=== PATIENT | male | born 1995 | race Caucasian/White ===

== ENCOUNTER 2020-07-15 21:33 | Emergency (ER) | payer BC, SELFPAY ==
[2020-07-15 21:34] VITALS: BP 132/79; PULSE 65; RESP 18; TEMP 36.1; O2SAT 99; BMI 33.7
--- NOTE | 2020-07-15 22:02 | EKG12_ITS ---
Test Reason : CP Blood Pressure : / mmHG Vent. Rate : 074 BPM Atrial Rate : 074 BPM P-R Int : 144 ms QRS Dur : 076 ms QT Int : 350 ms P-R-T Axes : 018 021 046 degrees QTc Int : 388 ms Normal sinus rhythm Normal ECG Confirmed by BO GRUBER, DANNI ([id number]), publishing editor TEJAL VILLALTA ([id number]) on 07/18/2020 1:28:50 PM Referred By: JOLANTA Confirmed By:STERLING SORIANO MD
--- NOTE | 2020-07-15 22:05 | ED.RN ---
DOES NOT HAVE A OLD EKG
[2020-07-15 22:14] LABS: Absolute Lymphocyte Count 2.55 X10^3/uL (0.83-4.51); Absolute Neutrophil Count 4.7 X10^3/uL (2.0-7.7); Basophil# 0.03 X10^3/uL; Basophil% 0.4 % (0-1); Eosinophil# 0.09 X10^3/uL; Eosinophils% 1.1 % (0-5); Hematocrit 41.6 % (40-54); Hemoglobin 13.7 g/dL (13.0-16.5); Lymphocyte # 2.55 X10^3/ul (4.0); Mean Corp Hgb Conc 32.9 g/dL (32-36); Mean Corpuscular Hgb 27.9 pg (27.0-32.0); Mean Corpuscular Volume 84.7 fL (80-94); Monocyte# 0.53 X10^3/uL; Monocyte% 6.6 % (0-10); NRBC Flagged by Analyzer 0 % (0-5); Neutrophil # 4.73 X10^3/uL (2.7-7.7); Neutrophil % 59.4 % (47-70); Platelet Count 215 K/mm3 (150-450); RBC Distribution Width CV 11.9 % (11.6-14.6); RBC Distribution Width SD 36.5 fl (35.1-43.9); Red Blood Count 4.91 M/mm3 (4.6-6.2)
[2020-07-15] MEDS: 0.9% Normal Saline 1,000 ML 150 ML IV (22:16)
--- NOTE | 2020-07-15 22:30 | RAD_ITS ---
STUDY: X-RAY CHEST REASON FOR EXAM: Male, 25 years old. PAIN IN LEFT LOWER CHEST, SHARP PAIN THAT LEADS TO SOB. TECHNIQUE: AP portable COMPARISON: None. FINDINGS: Less than optimal inspiratory effort is seen however the lungs are clear. There is no demonstrated pleural abnormality. Normal size heart. Normal mediastinum and srinivas. Normal visualized pulmonary arteries. Normal visualized aortic arch and descending thoracic aorta. Normal visualized thoracic spine. Normal visualized ribs, clavicles, and shoulders. There is no demonstrated abnormality of the visualized soft tissue structures of the upper abdomen. RAD/Chest 1 View (Portable) IMPRESSION: Diminished inspiratory effort. No acute disease. Electronically Signed: Alex Spring MD at 22:48 EDT , Service support ,
--- NOTE | 2020-07-15 22:34 | ED.VIS.GEN ---
History of Present Illness Chief Complaint: Flank Pain Detail of Chief Complaint: Chest pain, flank pain Informant: Patient Onset: Days Current Severity: Mild Maximum Severity: Moderate Narrative: Patient presents with intermittent sharp left-sided chest pain. He also reports some left flank pain. He states a couple days ago he had sharp chest pain but really had no further episodes until today. He denies night headedness or near syncope. He denies palpitations. He does report some tightness across his lower back lately with pain on his left leg. Past Medical History - Allergies and Home Meds Allergies/Adverse Reactions: Allergies No Known Allergies Allergy (Verified 07/15/20 21:34) Primary Care Physician: Toma Medel PA [Primary Care Provider] - Past Medical History: None Lives: Spouse/ Significant Other Smoking Status: Unknown if ever smoked Review of Systems General: Denies: Chills, Fever Eyes: Denies: Visual changes - bilaterally ENT: Denies: Bilateral ear pain Cardiovascular: Reports: Chest pain. Denies: Palpitations, Heart racing Respiratory: Denies: Dyspnea, Cough Gastrointestinal: Reports: Abdominal pain - Left flank. Denies: Nausea, Vomiting Musculoskeletal: Reports: Extremity Pain. Denies: Swelling Skin: Denies: Rash, Wounds Neurological: Denies: Headache Hematologic: Denies: Easy bruising, Easy bleeding Allergy: Denies: Uticaria Physical Exam Vital Signs/Narrative: Vital Signs Temp Pulse Resp BP Pulse Ox 07/15/20 21:34 97.0 F L 65 18 132/79 H 99 Inital Vital Signs reviewed: Yes General: Well nourished, Well developed Head: Normocephalic ENT: Moist mucous membranes Neck: Supple Cardiovascular: Regular rate, Regular rhythm Respiratory: No distress, CTA bilaterally Abdomen: Soft, Nontender, Normal bowel sounds Back: - - Is in the left lower lumbar paraspinal muscles. Extremities: Nontender Skin: Normal color Neurological: Alert, Oriented x3, Normal Strength, Normal Sensation Psychological: Normal affect Diagnostic/Tx/Re-eval Impressions Chest X-Ray 07/15/20 22:30 IMPRESSION: Diminished inspiratory effort. No acute disease. Electronically Signed: Alex Spring MD at 22:48 EDT , Service support , 07/15/20 22:30 Chest 1 View (Portable) [RAD] Stat Laboratory Results 07/15/20 07/15/20 07/15/20 22:00 22:00 22:00 WBC 8.0 RBC 4.91 Hgb 13.7 Hct 41.6 MCV 84.7 MCH 27.9 MCHC 32.9 RDW Std Deviation 36.5 RDW Coeff of Anastasiia 11.9 Plt Count 215 MPV 10.0 Immature Gran % (Auto) 0.500 Neut % (Auto) 59.4 Lymph % (Auto) 32.0 [place] % (Auto) 6.6 Eos % (Auto) 1.1 Baso % (Auto) 0.4 Absolute Neuts (auto) 4.7 Absolute Lymphs (auto) 2.55 Nucleated RBC % 0 D-Dimer Quant (PE/DVT) 0.30 Sodium 140 Potassium 3.8 Chloride 108 H Carbon Dioxide 29.0 Anion Gap 3 L BUN 14 Creatinine 1.00 Estim Creat Clear Calc 132.62 Est GFR (MDRD) Af Amer 115 Est GFR (MDRD) Non-Af 95 BUN/Creatinine Ratio 14.0 Glucose 108 H Calcium 8.4 L Troponin I < 0.015 Urine Color Urine Clarity Urine pH Ur Specific [place] Urine Protein Urine Glucose (UA) Urine Ketones Urine Occult Blood Urine Nitrite Urine Bilirubin Urine Urobilinogen Ur Leukocyte Esterase Urine RBC Urine WBC Ur Squamous Epith Cells Amorphous Sediment Urine Bacteria Urine Mucus 07/15/20 23:11 WBC RBC Hgb Hct MCV MCH MCHC RDW Std Deviation RDW Coeff of Anastasiia Plt Count MPV Immature Gran % (Auto) Neut % (Auto) Lymph % (Auto) [place] % (Auto) Eos % (Auto) Baso % (Auto) Absolute Neuts (auto) Absolute Lymphs (auto) Nucleated RBC % D-Dimer Quant (PE/DVT) Sodium Potassium Chloride Carbon Dioxide Anion Gap BUN Creatinine Estim Creat Clear Calc Est GFR (MDRD) Af Amer Est GFR (MDRD) Non-Af BUN/Creatinine Ratio Glucose Calcium Troponin I Urine Color Yellow Urine Clarity Clear Urine pH 7.0 Ur Specific [place] 1.010 Urine Protein Negative Urine Glucose (UA) Normal Urine Ketones Negative Urine Occult Blood Negative Urine Nitrite Negative Urine Bilirubin Negative Urine Urobilinogen 1 H Ur Leukocyte Esterase Negative Urine RBC 0 SEEN Urine WBC 0 SEEN Ur Squamous Epith Cells 0 SEEN Amorphous Sediment 1+ Urine Bacteria 2+ Urine Mucus 0 SEEN - EKG Initial EKG Interpretation: Sinus Rhythm - Sinus at 74 with no acute ischemia. - Medical Decision Making Test results discussed with patient and significant other at bedside. He does have reproducible tenderness in the left lower lumbar paraspinals with pain down his leg. I feel this is likely nerve irritation. His chest pain is described as intermittent and sharp. He may have a degree of costochondritis causing this. Regardless I think that prednisone helped calm both of these down. He will be given first dose tonight and then discharged with a prescription for a burst. ED Disposition - Plan for ED Patient: Disposition: Home or Assisted Living Diagnosis: Lumbar radiculopathy Instructions: ED Back Pain Acute or Chronic Prescriptions: Prednisone [Deltasone] 40 mg PO DAILY #10 tab Transmission Status: Pending to [id number] Referrals: Toma Medel PA [Primary Care Provider] - 1 Week
[2020-07-15 22:36] LABS: Anion Gap 3 (5-15); BUN 14 mg/dL (7-18); Calcium,Total 8.4 mg/dL (8.5-10.1); Chloride 108 mmol/L (98-107); EST Glomerular Filtration Rate 95 mL/min (>60); Est Glom Filt Rate - Afr Amer 115 mL/min (>60); Estimated Creatinine Clearance 132.62 ml/min; Glucose 108 mg/dL (74-106); Potassium 3.8 mmol/L (3.5-5.1); Sodium Level 140 mmol/L (136-145)
[2020-07-15 23:19] LABS: Mucous, Urine 0 SEEN /hpf (<or=2+); Red Blood Cells-Urine 0 SEEN /hpf (0-5); Squamous Epithelial Cells - UA 0 SEEN /hpf (0-5); White Blood Cells 0 SEEN /hpf (0-5)
[2020-07-15 23:20] LABS: Color, Urine Yellow (Yellow); Glucose, Dipstick Normal (Normal); Ketone-Dipstick Negative (Negative); Leukocyte Esterase-Dipstick Negative /ul (Negative); Nitrite-Dipstick Negative (Negative); Occult Blood-Urine Negative /ul (Negative); Protein-Dipstick Negative (Negative); Urine Bilirubin Dipstick Negative (Negative); Urine Clarity Clear (Clear); Urine Urobilinogen 1 mg/dl (Normal)
[2020-07-15 23:37] LABS: Bacteria 2+ /hpf (None Seen)
[2020-07-15 23:38] LABS: Amorphous Sediment 1+
[2020-07-16] MEDS: predniSONE 20 MG Tablet 60 MG PO (00:01)
[2020-07-16 00:02] VITALS: BP 111/71; PULSE 65; RESP 18; O2SAT 98
== END 2020-07-16 00:05 | disposition home or self-care (01) ==
PROVIDERS: Emergency Provider Emergency Medicine; PCP Physician Assistant
DX: M54.16 Radiculopathy, lumbar region (principal); R10.9 Unspecified abdominal pain
CPT/HCPCS: 71045; 80048; 81001; 84484; 85025; 85379; 93005; 96360; 96361; 99285; A4216

== ENCOUNTER 2021-01-18 13:22 | Emergency (ER) | payer BC, SELFPAY ==
[2021-01-18 13:23] VITALS: BP 137/92; PULSE 85; RESP 16; TEMP 37; O2SAT 98; BMI 34.9
--- NOTE | 2021-01-18 13:37 | EKG12_ITS ---
Test Reason : FALL Blood Pressure : / mmHG Vent. Rate : 074 BPM Atrial Rate : 074 BPM P-R Int : 144 ms QRS Dur : 076 ms QT Int : 358 ms P-R-T Axes : 030 035 048 degrees QTc Int : 397 ms Normal sinus rhythm Normal ECG Confirmed by NAOMI GRUBER, RADHA ([id number]), video tape editor TEJAL VILLALTA ([id number]) on 01/21/2021 10:00:51 AM Referred By: RU Confirmed By:RADHA SALGADO MD
--- NOTE | 2021-01-18 13:37 | CT_ITS ---
EXAM: CT HEAD WITHOUT INTRAVENOUS CONTRAST CLINICAL INDICATION: Fall hitting left side of head 4 months ago, pain TECHNIQUE: Multiple axial images were obtained of the head without intravenous contrast. This CT exam was performed using one or more of the following dose reduction techniques: automated exposure control, adjustment of the mA and/or kV according to patient size, and/or use of iterative reconstruction technique. This report was created using [employer] report generation technology. COMPARISON: None. FINDINGS: BRAIN AND EXTRA-AXIAL SPACES: Unremarkable. No intra- or extra-axial hemorrhage. No evidence of acute infarct. No intracranial mass or mass effect. There is preservation of the joseph/white matter interface. Posterior fossa structures are unremarkable. Ventricles are appropriate for age. No hydrocephalus. Basal cisterns are patent. BONES/JOINTS: Unremarkable. No discrete lytic or blastic abnormalities. SINUSES: Unremarkable as visualized. Clear. MASTOID AIR CELLS: Unremarkable. Clear. ORBITS: Visualized globes, extraocular muscles, optic nerves and retrobulbar fat appear unremarkable. CT/Brain/Head without Contrast IMPRESSION: Negative head/brain CT without intravenous contrast. Electronically Signed: Armaan Escamilla MD ([place]) at 14:12 EDT , Service support ,
--- NOTE | 2021-01-18 13:38 | ED.VISSUMM ---
- ER Visit Summary Date of Service: 01/18/21 Chief Complaint: [Not feeling well with headache] History of Present Illness: The patient is a 25 M [presents to the emergency department with multiple complaints today. Patient states that 2 to 3 months ago he was cutting some wood when a piece flew back and struck him in the left side of the head. Patient states that he saw stars for a few moments but does not believe he was knocked unconscious. Patient since that time is been having intermittent headaches and has not been feeling well. Patient states that while standing and talking to a friend yesterday, lost his balance and started to fall backwards but caught himself. Today while at his mother's house he was sitting when he began suddenly feeling very shaky and his face became flushed. Patient does state that he has been under more stress of late. No history of anxiety or panic attacks. He denies recent illness. Patient otherwise has no medical history.] Physical Examination: [HEENT-PERRLA, EOMI. Cranial nerves II through XII grossly intact. TMs clear. Mucous membranes moist. No adenopathy. Cardiovascular-regular rate and rhythm without murmur or ectopy Lungs-clear to auscultation, chest wall stable without crepitus or subcu emphysema Abdomen-normoactive bowel sounds, soft, nontender, no rebound or rigidity, no peritoneal signs. Extremities-intact ?4, normal range of motion, normal pulses, atraumatic] Test Results: [Orthostatic vital signs were negative. CBC with it was normal. Chemistries normal. Troponin is less than 0.015. EKG obtained on arrival showed a sinus rhythm with a ventricular rate of 74 bpm with no acute ST segment changes. CT scan of the brain without contrast was normal.] Emergency Department Course and Treatment: [The line established on arrival.] Treatment Plan: [Patient to follow-up with his primary care physician 3 to 5 days. At this point etiology of symptoms unclear although I suspect anxiety may be a component.] Disposition: [Discharged home in stable condition] Impression: [Cephalgia-posttraumatic Anxiety reaction] This note was generated with [employer] dictation software. It may contain incorrect words, spelling, and punctuation that were not noted in review of the chart prior to signing ED Disposition - Plan for ED Patient: Referrals: Toma Medel PA [Primary Care Provider] -
[2021-01-18 13:53] LABS: Absolute Neutrophil Count 4.8 X10^3/uL (2.0-7.7); Basophil# 0.04 X10^3/uL; Basophil% 0.5 % (0-1); Eosinophil# 0.07 X10^3/uL; Eosinophils% 0.9 % (0-5); Hematocrit 45.5 % (40-54); Hemoglobin 15.2 g/dL (13.0-16.5); Lymphocyte % 27.1 % (19-41); Mean Corp Hgb Conc 33.4 g/dL (32-36); Mean Corpuscular Hgb 28.1 pg (27.0-32.0); Mean Corpuscular Volume 84.1 fL (80-94); Mean Platelet Vol. 9.8 fl (6.2-12.0); Monocyte# 0.45 X10^3/uL; Monocyte% 6.1 % (0-10); NRBC Flagged by Analyzer 0 % (0-5); Neutrophil # 4.78 X10^3/uL (2.7-7.7); Neutrophil % 64.7 % (47-70); Platelet Count 233 K/mm3 (150-450); RBC Distribution Width CV 11.9 % (11.6-14.6); RBC Distribution Width SD 35.9 fl (35.1-43.9); Red Blood Count 5.41 M/mm3 (4.6-6.2); White Blood Count 7.4 K/mm3 (4.4-11.0)
[2021-01-18 14:11] LABS: Anion Gap 6 (5-15); BUN 14 mg/dL (7-18); BUN/Creat Ratio 13.3 RATIO (10-20); Calcium,Total 8.6 mg/dL (8.5-10.1); Chloride 106 mmol/L (98-107); Creatinine, Serum 1.05 mg/dL (0.70-1.30); EST Glomerular Filtration Rate 90 mL/min (>60); Est Glom Filt Rate - Afr Amer 109 mL/min (>60); Glucose 112 mg/dL (74-106); Sodium Level 140 mmol/L (136-145)
[2021-01-18] MEDS: 0.9% Normal Saline 1,000 ML 150 ML IV (14:25)
[2021-01-18 14:35] VITALS: BP 117/73; BP 119/53; BP 125/74; PULSE 74; PULSE 77
--- NOTE | 2021-01-18 14:38 | ED.DEP ---
ED Disposition - Plan for ED Patient: Instructions: Tension Headaches, ED Panic Attack Referrals: Toma Medel, PA [Primary Care Provider] - 3-5 Days
== END 2021-01-18 15:07 | disposition home or self-care (01) ==
LOC: ED 14:18
PROVIDERS: Emergency Provider Emergency Medicine; PCP Physician Assistant
DX: G44.309 Post-traumatic headache, unspecified, not intractable (principal); F41.1 Generalized anxiety disorder; R23.2 Flushing; Z72.0 Tobacco use
CPT/HCPCS: 70450; 80048; 84484; 85025; 93005; 96360; 99284; J7030

== ENCOUNTER 2022-02-07 11:39 | Emergency (ER) | payer OTHER, SELFPAY ==
[2022-02-07 11:40] VITALS: BP 118/57; PULSE 87; RESP 16; TEMP 36.4; O2SAT 98; BMI 33.7
--- NOTE | 2022-02-07 11:58 | ED.VIS.BACK ---
HPI History of Present Illness Chief Complaint: Back Detail of Chief Complaint: Patient with complaint of mid back pain that started 5 days ago. Informant: patient Onset/Context/Timing Current Severity: Severe Narrative Narrative: Patient presents to the emergency department complaint of back pain is her about 5 days ago. No trauma known. Patient does work for tree service and trims trees. Patient went to urgent care 3 days ago and was started on prednisone but does not help in his pain very much. Patient states today the pains radiating down to his low back on the left side and also into the left ribs. He denies any abdominal pain. He denies urinary symptoms. Pain is worse with certain movements. Patient denies recent travel or surgery. No history of PE or DVT. Pain is worse with deep breath. He denies shortness of breath. He denies fever. He had a mild cough last week and thought it was related to allergies. Prior similar symptoms: No PFSH [facility] Medical History (Updated 02/07/22 @ 13:[address] Alexis Staley, DO) Asthma Home Medications NK 01/18/21 [History Last Taken Unknown] cyclobenzaprine 10 mg PO TID PRN #20 tablet 02/07/22 [Rx Last Taken Unknown] hydrocodone-acetaminophen 1 tab PO Q4H PRN PRN 2 Days #10 tablet 02/07/22 [Rx Last Taken Unknown] naproxen 500 mg PO BID #14 tab 02/07/22 [Rx Last Taken Unknown] Allergy/AdvReac Type Severity Reaction Status Date / Time No Known Allergies Allergy Verified 02/07/22 11:41 Surgical History no surgical history Social History Smoking Status: Current every day smoker tobacco type: cigarettes ROS ROS ED Constitutional Constitutional ED: Reports systems reviewed and no addt'l complaints, except as documented; Denies body ache(s), change in weight or chills Eyes Eyes: Denies acute decrease in peripheral vision, change in vision, double vision or loss of vision ENT ENT ED: Reports none; Denies ear pain, lip swelling, loss taste/smell, neck pain, otalgia or sore throat Cardiovascular Cardiovascular: Reports none; Denies abdominal pain, chest pain with activity, leg edema, lightheadedness, palpitations, rapid heart rate or syncope Respiratory/Chest Respiratory/Chest: Reports none; Denies change in mental status, dry cough, dyspnea, hemoptysis, shortness of breath at rest or shortness of breath with exertion Gastrointestinal Gastrointestinal: Reports none; Denies abdominal pain, change in stool character, diarrhea, hematemesis, hematochezia, melena, rectal bleeding or vomiting Genitourinary Genitourinary ED: Reports none; Denies abdominal discomfort, anuria, dysuria, genital pain or polyuria Musculoskeletal Musculoskeletal: Reports none and back pain; Denies arthralgias, difficulty walking, extremity pain, muscle weakness or myalgias Integumentary Reports none; Denies abscess or rash Neurologic Neurologic: Reports none; Denies abnormal gait, confusion, focal weakness, frequent falls, headache(s), loss of vision, numbness, paresthesias, radicular pain, vertigo or weakness Psychiatric Psychiatric: Reports systems reviewed and no addt'l complaints, except as documented and none; Denies behavioral changes, confusion, difficulty concentrating, hallucinations, suicidal ideation, tactile hallucinations or visual hallucinations Endocrine Endocrinology: Denies none, cold intolerance, excessive sweating, fatigue or heat intolerance Hematologic/Lymphatic Hematologic/Lymphatic: Reports none; Denies anemia, easy bleeding or easy bruising Allergic/Immunologic Allergic/Immunologic ED: Denies as per HPI, none, lip swelling, mouth swelling, throat swelling, tongue swelling or hives EXAM Physical Exam Const Vital Signs: 02/07/22 11:40 Temperature 97.6 F L Temperature Source Temporal Pulse Rate 87 Respiratory Rate 16 Blood Pressure 118/57 L Blood Pressure Mean 77 Pulse Ox 98 Oxygen Delivery Method Room Air Positive well nourished and well developed General Appearance ED: well developed and NAD HEENT Reports TM's clear and moist mucous membranes normocephalic and atraumatic; Negative for trauma or tenderness Tympanic Membrane ED: Yes TM's clear Eyes PERRL and EOMs intact bilaterally General Eye ED: Negative for pale conjunctiva or scleral icterus Neck no lymphadenopathy, supple and no JVD General: Negative for tenderness Chest Wall inspection of chest normal and palpation of chest normal Chest: Negative for tenderness Resp normal respiratory effort and clear to auscultation bilaterally Effort and Inspection: Negative for respiratory distress or pain with movement Auscultation: Negative for rhonchi, wheezes or diminished lung sounds Cardio regular rate, regular rhythm, S1 normal heart sound, S2 normal heart sound and no murmurs Peripheral Pulses: pulses 2+ throughout GI normal to inspection, nondistended, normoactive bowel sounds, soft to palpation, non-tender, non-distended and no masses Back/Spine no CVA tenderness Back/Spine Narrative: Patient has diffuse tenderness palpation over the left thoracic and lumbar paraspinal musculature. Patient also has some tenderness along the left lower ribs. Negative CVA tenderness. Negative straight leg raises. Deep tendon reflexes are plus out of 4 bilaterally at the patella Achilles. Patient has normal 5 extension. Patient has normal sensation to light touch. Extremity normal to inspection General Extremety ED: Negative for edema General Extremity: Negative for edema Neuro oriented x3, CN's II-XII intact bilaterally, no sensory deficits noted and gait normal Sensorium / Orientation: awake, alert, oriented to person, oriented to place and oriented to time Motor Exam: strength 5/5 throughout and strength abnormal Psych mental status grossly normal Skin no rashes or lesions noted and no wounds MDM MDM MDM Narrative Medical decision making narrative: IV line established. Patient was medicated morphine, Norflex, and Toradol. Patient had some pain relief with that but continued to complain of pain and was given a milligram of Dilaudid IV. D-dimer was normal. Urine was normal. At this point in the differential would be musculoskeletal back pain versus thoracic herniated disc given the radiation of the pain to the ribs anteriorly. Patient will be given a prescription for Flexeril, [place], and naproxen. Patient advised to follow-up with primary care physician in 3 to 5 days. Lab Data Attestation: I reviewed the patient's lab results. Labs: Laboratory Results - last 24 hr 02/07/22 02/07/22 12:15 12:45 D-Dimer Quant (PE/DVT) < 0.27 L Urine Color Yellow Urine Clarity Clear Urine pH 5.0 Ur Specific [place] 1.020 Urine Protein Negative Urine Glucose (UA) Normal Urine Ketones Negative Urine Occult Blood Negative Urine Nitrite Negative Urine Bilirubin Negative Urine Urobilinogen Normal Ur Leukocyte Esterase Negative Urine RBC 0 SEEN Urine WBC 0 SEEN Ur Squamous Epith Cells 0 SEEN Urine Bacteria 0 SEEN Urine Mucus 0 SEEN Radiography Diagnostic Testing: Clinical Impression(s) from Imaging Studies Chest X-Ray 02/07/22 12:15 IMPRESSION: No acute cardiopulmonary process. . Electronically Signed: Micheal Rocha MD at 12:32 EDT Reading Location ID and State: [facility] / [place] Tel , Service support , 1 view chest x-ray obtained interpreted by myself as no acute disease process. Radiology in agreement. Discharge Plan Triage Chief Complaint: Back ED Provider: Alexis Staley Dx/Rx/DC Orders Clinical Impression: Back pain Instructions: ED Back Spasm, No Trauma Prescriptions: New cyclobenzaprine [cyclobenzaprine] 10 MG tablet 10 mg PO TID PRN (Reason: Muscle Spasm) Qty: 20 RF: 0 hydrocodone-acetaminophen [hydrocodone-acetaminophen] 1 TABLET tablet 1 tab PO Q4H PRN PRN (Reason: Pain) 2 Days Qty: 10 RF: 0 naproxen 500 MG tablet 500 mg PO BID Qty: 14 RF: 0 No Action NK RF: 0 Primary Care Provider: Toma Medel Referrals: Toma Medel, PA [Primary Care Provider] - 3-5 Days Disposition Disposition: Home, Self Care
[2022-02-07] MEDS: Ketorolac 30 MG/ML Syringe IV (12:07)
[2022-02-07] MEDS: Morphine 4 MG/ML Syringe IV (12:08)
[2022-02-07] MEDS: Orphenadrine 60 MG/2 ML Ampul IM (12:09)
--- NOTE | 2022-02-07 12:15 | RAD_ITS ---
STUDY: X-RAY CHEST REASON FOR EXAM: Male, 26 years old. Chest pain TECHNIQUE: 1 view COMPARISON: 07/15/2009 FINDINGS: Cardiomediastinal silhouette is unremarkable. Costophrenic angles are sharp. Lungs are clear. The trachea is midline. There is no pneumothorax. The bones are grossly intact. RAD/Chest 1 View (Portable) IMPRESSION: No acute cardiopulmonary process. . Electronically Signed: Micheal Rocha MD at 12:32 EDT ,
[2022-02-07 12:37] LABS: D-Dimer Quantitative (DVT/PE) < 0.27 FEU/ug/m (0.27-0.49)
[2022-02-07 12:50] LABS: Bacteria 0 SEEN /hpf (None Seen); Mucous, Urine 0 SEEN /hpf (<or=2+); Red Blood Cells-Urine 0 SEEN /hpf (0-5); Squamous Epithelial Cells - UA 0 SEEN /hpf (0-5); White Blood Cells 0 SEEN /hpf (0-5)
[2022-02-07 12:54] LABS: Color, Urine Yellow (Yellow); Glucose, Dipstick Normal (Normal); Ketone-Dipstick Negative (Negative); Leukocyte Esterase-Dipstick Negative /ul (Negative); Nitrite-Dipstick Negative (Negative); Occult Blood-Urine Negative /ul (Negative); Protein-Dipstick Negative (Negative); Urine Bilirubin Dipstick Negative (Negative); Urine Clarity Clear (Clear); Urine Urobilinogen Normal (Normal)
[2022-02-07] MEDS: HYDROmorphone 1 MG/ML Syringe IV (13:22)
[2022-02-07 14:08] VITALS: BP 124/74; PULSE 69; RESP 16; O2SAT 99
== END 2022-02-07 14:09 | disposition home or self-care (01) ==
PROVIDERS: Emergency Provider Emergency Medicine; PCP Physician Assistant; Visit Provider Emergency Medicine
DX: M54.9 Dorsalgia, unspecified (principal); R07.81 Pleurodynia; J45.909 Unspecified asthma, uncomplicated; F17.210 Nicotine dependence, cigarettes, uncomplicated
CPT/HCPCS: 71045; 81001; 85379; 96372; 96374; 96375; 99283; A4216

== ENCOUNTER 2022-11-23 15:20 | Emergency (ER) | payer OTHER, SELFPAY ==
[2022-11-23 15:21] VITALS: BP 132/85; PULSE 98; RESP 16; TEMP 36.7; O2SAT 100; BMI 32.6
[2022-11-23] MEDS: Aspirin 81 MG TAB.CHEW 324 MG PO (15:30)
--- NOTE | 2022-11-23 15:33 | EKG12_ITS ---
Test Reason : Blood Pressure : / mmHG Vent. Rate : 092 BPM Atrial Rate : 092 BPM P-R Int : 156 ms QRS Dur : 072 ms QT Int : 330 ms P-R-T Axes : 033 023 055 degrees QTc Int : 408 ms Normal sinus rhythm Normal ECG Confirmed by NAOMI GRUBER, RADHA ([id number]), editor department TEJAL VILLALTA ([id number]) on 11/24/2022 2:48:29 PM Referred By: Confirmed By:RADHA SALGADO MD
--- NOTE | 2022-11-23 15:33 | ED.VIS.DYS ---
HPI History of Present Illness Chief Complaint: Shortness of Breath Narrative Narrative: 27-year-old male who denies significant past medical history presents from his primary care provider's office with concern for pulmonary embolism. He states that this morning when he woke up at around 5:30 in the morning, almost 10 hours ago, that he had 5 minutes of left-sided chest pain that was sharp and stabbing. Throughout the day, he became more short of breath. He denies any leg swelling. No fevers or chills. Occasional cough. No sore throat or rhinorrhea. No history of sudden in the family or early coronary artery disease. He states that he presents to the emergency department to make sure it is not a blood clot. His sister has history factor V Leiden deficiency, and has history of pulmonary embolism. [facility] Medical History Asthma Home Medications NK 01/18/21 [History Last Taken Unknown] cyclobenzaprine 10 mg tablet 10 mg PO TID PRN Muscle Spasm #20 TABLETS 02/07/22 [Rx Last Taken Unknown] hydrocodone-acetaminophen 5-325mg 5mg-325mg 1 tab PO Q4H PRN PRN Pain 2 days #10 TABLETS 02/07/22 [Rx Last Taken Unknown] naproxen 500 mg tablet 500 mg PO BID #14 tabs 02/07/22 [Rx Last Taken Unknown] Allergy/AdvReac Type Severity Reaction Status Date / Time No Known Allergies Allergy Verified 11/23/22 15:21 Social History Smoking Status: Current every day smoker tobacco type: cigarettes ROS ROS ED ROS Narrative Constitutional: No fever, no chills. HEENT: No sore throat. No neck pain. No loss of vision. No rhinorrhea. Cardiovascular: 5 minutes of left pectoral, sharp and stabbing chest pain. No palpitations. No pedal edema. Respiratory: Occasional cough, positive shortness of breath. Abdominal: No abdominal pain. No nausea. No vomiting. Genitourinary: No dysuria. No hematuria. Musculoskeletal: No myalgias. No arthralgias. Neurologic: No headaches. No dizziness. No lightheadedness. Skin: No rash. No change in color. Psychiatric: No depression. No anxiety. EXAM Physical Exam Narrative Exam Narrative: Afebrile. Vital signs noted. HEENT: Normocephalic. Atraumatic. PERRL, EOMI. Neck soft and supple. No point tenderness or step off. Cardiovascular: Regular rate and rhythm. No murmurs, rubs, or gallops appreciated. Respiratory: No tachypnea. Lungs clear to auscultation bilaterally. Gastrointestinal: Abdomen soft, nontender, with normoactive bowel sounds. No rebound or guarding. Neurological: Awake. Alert. Nonfocal, nonlateralizing. Skin: No rash. Normal color. No pallor. Musculoskeletal: No pedal edema. Full range of motion extremities. Const Vital Signs: 11/23/22 15:21 11/23/22 15:33 11/23/22 16:50 Temperature 98.1 F Temperature Source Temporal Pulse Rate 98 Respiratory Rate 16 Respiratory Effort Short of Breath Respiratory Depth Normal Respiratory Pattern Normal Blood Pressure 132/85 H Blood Pressure Mean 100 Pulse Ox 100 Oxygen Delivery Method Room Air Room Air 11/23/22 18:20 Temperature 98.0 F Temperature Source Temporal Pulse Rate 74 Respiratory Rate 17 Respiratory Effort Respiratory Depth Respiratory Pattern Blood Pressure 102/69 Blood Pressure Mean 80 Pulse Ox 99 Oxygen Delivery Method Room Air MDM MDM MDM Narrative Medical decision making narrative: I reviewed his outpatient paperwork/discharge instructions. He also presents with an EKG which I reviewed and interpreted. It demonstrates normal sinus rhythm at 88 bpm without ectopy or acute ST changes. No STEMI. Currently, his pulse ox is 100% on room air without evidence of hypoxia. Pulse is 98. I do feel that he could be ruled out with a D-dimer. Chest pain work-up was pursued. In the differential diagnosis is acute coronary syndrome/non-STEMI, pulmonary embolism, and bronchitis. EKG was obtained and interpreted by myself. It demonstrates normal sinus rhythm at 92 bpm without ectopy or acute ST changes. No STEMI. I reviewed his laboratory work after it was obtained and his WBC count is elevated at 22.5 with absolute neutrophils of 19.5. I am unsure as to the cause of this. In order to rule out a pneumonia chest x-ray was obtained and interpreted by myself which shows no evidence of pneumothorax, or an infiltrate. I do not feel antibiotics are indicated for a pneumonia. Radiology confirms my reading/interpretation of his chest x-ray. His BMP shows chloride elevated of 108 with glucose 103 and a normal anion gap of 5. Sodium is normal at 140 with normal potassium of 4.1. High-sensitivity troponin is 3. This is greater than a 6-hour troponin. I do feel that he has been ruled out by biomarkers for acute coronary syndrome. He is currently PERC negative with a heart rate below 90 and a pulse ox of 100% on room air with no risk factors that are known. His D-dimer is helpful in confirming after review it is low at less than 0.27 as it has been in the past. Patient is not having dysuria or hematuria, but he and his would like his urine sent off for evaluation as an explanation for his leukocytosis. His COVID swab and his influenza swab results were reviewed and are negative. I was able to discuss the patient with his primary care provider who saw him today, Dr. Sykes, who agrees with close outpatient follow-up to follow the leukocytosis of unknown origin. Urinalysis was reviewed and is negative for infection. I do not feel antibiotics are indicated. I do not feel that this is the cause of his leukocytosis. I feel he can be discharged safely home with follow-up to his primary care provider. Return instructions to the emergency department were reviewed. Disposition is discharged home in stable condition. Lab Data Attestation: I reviewed the patient's lab results. Labs: Laboratory Results - last 24 hr 11/23/22 11/23/22 11/23/22 15:35 15:35 15:35 WBC 22.5 H RBC 5.40 Hgb 15.1 Hct 45.8 MCV 84.8 MCH 28.0 MCHC 33.0 RDW Std Deviation 36.7 RDW Coeff of Anastasiia 12.1 Plt Count 206 MPV 10.1 Immature Gran % (Auto) 0.500 Neut % (Auto) 86.6 H Lymph % (Auto) 8.2 L Hawkins % (Auto) 4.0 Eos % (Auto) 0.4 Baso % (Auto) 0.3 Absolute Neuts (auto) 19.5 H Absolute Lymphs (auto) 1.84 Nucleated RBC % 0 D-Dimer Quant (PE/DVT) < 0.27 L Sodium 140 Potassium 4.1 Chloride 108 H Carbon Dioxide 27.0 Anion Gap 5 BUN 10 Creatinine 0.82 Estim Creat Clear Calc 158.87 Est GFR (MDRD) Af Amer 143 Est GFR (MDRD) Non-Af 118 BUN/Creatinine Ratio 12.2 Glucose 103 Calcium 8.8 Troponin I High Sens 3 Urine Color Urine Clarity Urine pH Ur Specific [place] Urine Protein Urine Glucose (UA) Urine Ketones Urine Occult Blood Urine Nitrite Urine Bilirubin Urine Urobilinogen Ur Leukocyte Esterase Urine RBC Urine WBC Ur Squamous Epith Cells Urine Bacteria Urine Mucus 11/23/22 11/23/22 17:36 17:43 WBC RBC Hgb Hct MCV MCH MCHC RDW Std Deviation RDW Coeff of Anastasiia Plt Count MPV Immature Gran % (Auto) Neut % (Auto) Lymph % (Auto) Hawkins % (Auto) Eos % (Auto) Baso % (Auto) Absolute Neuts (auto) Absolute Lymphs (auto) Nucleated RBC % D-Dimer Quant (PE/DVT) Sodium Potassium Chloride Carbon Dioxide Anion Gap BUN Creatinine Estim Creat Clear Calc Est GFR (MDRD) Af Amer Est GFR (MDRD) Non-Af BUN/Creatinine Ratio Glucose Calcium Troponin I High Sens 3 Urine Color Yellow Urine Clarity Clear Urine pH 8.0 Ur Specific [place] 1.010 Urine Protein Negative Urine Glucose (UA) Normal Urine Ketones Negative Urine Occult Blood Negative Urine Nitrite Negative Urine Bilirubin Negative Urine Urobilinogen Normal Ur Leukocyte Esterase Negative Urine RBC 0 SEEN Urine WBC 0 SEEN Ur Squamous Epith Cells 0 SEEN Urine Bacteria 0 SEEN Urine Mucus 0 SEEN Radiography Diagnostic Testing: Clinical Impression(s) from Imaging Studies Chest X-Ray 11/23/22 15:52 IMPRESSION: There are no acute findings. Electronically Signed: Brian Kinney MD at 16:20 EST Reading Location ID and State: [facility] / [place] , Service support , Discharge Plan Triage Chief Complaint: Shortness of Breath ED Provider: Marlo Blankenship Dx/Rx/DC Orders Clinical Impression: SOB (shortness of breath), Leukocytosis, Chest pain Instructions: ED Chest Pain, Uncertain Cause, ED Dyspnea Prescriptions: No Action NK cyclobenzaprine [cyclobenzaprine] 10 MG tablet 10 mg PO TID PRN (Reason: Muscle Spasm) Qty: 20 0RF hydrocodone-acetaminophen [hydrocodone-acetaminophen] 1 TABLET tablet 1 tab PO Q4H PRN PRN (Reason: Pain) 2 Days Qty: 10 0RF naproxen 500 MG tablet 500 mg PO BID Qty: 14 0RF Stand Alone Forms: ED Work / School Excuse Primary Care Provider: Toma Medel Referrals: Dakotah Sykes MD [Non-Staff] - 1 Week if not improving Tmoa Medel PA [Primary Care Provider] - Activity Restrictions/Additional Instructions: You had an elevated white count on her laboratory work today/leukocytosis. Follow-up with your primary care provider in approximately 1 week for repeat laboratory testing regarding this. Disposition Disposition: Home, Self Care
[2022-11-23 15:44] LABS: Absolute Lymphocyte Count 1.84 X10^3/uL (0.83-4.51); Absolute Neutrophil Count 19.5 X10^3/uL (2.0-7.7); Basophil# 0.07 X10^3/uL; Basophil% 0.3 % (0-1); Eosinophil# 0.09 X10^3/uL; Eosinophils% 0.4 % (0-5); Hematocrit 45.8 % (40-54); Hemoglobin 15.1 g/dL (13.0-16.5); Lymphocyte # 1.84 X10^3/ul (0.83-4.51); Lymphocyte % 8.2 % (19-41); Mean Corpuscular Volume 84.8 fL (80-94); Mean Platelet Vol. 10.1 fl (6.2-12.0); Monocyte# 0.89 X10^3/uL; NRBC Flagged by Analyzer 0 % (0-5); Neutrophil # 19.46 X10^3/uL (2.7-7.7); Neutrophil % 86.6 % (47-70); Platelet Count 206 K/mm3 (150-450); RBC Distribution Width CV 12.1 % (11.6-14.6); RBC Distribution Width SD 36.7 fl (35.1-43.9); White Blood Count 22.5 K/mm3 (4.4-11.0)
--- NOTE | 2022-11-23 15:52 | RAD_ITS ---
STUDY: X-RAY CHEST REASON FOR EXAM: Male, 27 years old. CHEST PAIN chest pain TECHNIQUE: XR Chest 1 View COMPARISON: 02/07/2022 FINDINGS: There is no demonstrated pleural abnormality. Normal size heart. Normal mediastinum and srinivas. Normal visualized pulmonary arteries. Normal visualized aortic arch and descending thoracic aorta. Normal visualized thoracic spine. Normal visualized ribs, clavicles, and shoulders. There is no demonstrated abnormality of the visualized soft tissue structures of the upper abdomen. RAD/Chest 1 View (Portable) IMPRESSION: There are no acute findings. Electronically Signed: Brian Kinney MD at 16:20 EST ,
[2022-11-23 16:08] LABS: Anion Gap 5 (5-15); BUN 10 mg/dL (7-18); BUN/Creat Ratio 12.2 RATIO (10-20); Calcium,Total 8.8 mg/dL (8.5-10.1); Chloride 108 mmol/L (98-107); Creatinine, Serum 0.82 mg/dL (0.70-1.30); EST Glomerular Filtration Rate 118 mL/min (>60); Est Glom Filt Rate - Afr Amer 143 mL/min (>60); Estimated Creatinine Clearance 158.87 ml/min; Glucose 103 mg/dL (74-106); Potassium 4.1 mmol/L (3.5-5.1); Sodium Level 140 mmol/L (136-145); Troponin-I HS (w/2H Reflex) 3 pg/mL (3.0-78.0)
[2022-11-23 16:37] LABS: D-Dimer Quantitative (DVT/PE) < 0.27 FEU/ug/m (0.27-0.49)
[2022-11-23 17:38] LABS: Reflex Troponin-HS? (from REC) Y
[2022-11-23 17:48] LABS: Bacteria 0 SEEN /hpf (None Seen); Mucous, Urine 0 SEEN /hpf (<or=2+); Red Blood Cells-Urine 0 SEEN /hpf (0-5); Squamous Epithelial Cells - UA 0 SEEN /hpf (0-5); White Blood Cells 0 SEEN /hpf (0-5)
[2022-11-23 18:14] LABS: Troponin-I HS 3 pg/mL (3.0-78.0)
[2022-11-23 18:15] LABS: Color, Urine Yellow (Yellow); Glucose, Dipstick Normal (Normal); Ketone-Dipstick Negative (Negative); Leukocyte Esterase-Dipstick Negative /ul (Negative); Nitrite-Dipstick Negative (Negative); Occult Blood-Urine Negative /ul (Negative); Protein-Dipstick Negative (Negative); Urine Bilirubin Dipstick Negative (Negative); Urine Clarity Clear (Clear); Urine Urobilinogen Normal (Normal)
[2022-11-23 18:20] VITALS: BP 102/69; PULSE 74; RESP 17; TEMP 36.7; O2SAT 99
== END 2022-11-23 18:50 | disposition home or self-care (01) ==
PROVIDERS: Emergency Provider Emergency Medicine; PCP Physician Assistant; Visit Provider Emergency Medicine
DX: R06.02 Shortness of breath (principal); R07.9 Chest pain, unspecified; F17.210 Nicotine dependence, cigarettes, uncomplicated; D72.829 Elevated white blood cell count, unspecified
CPT/HCPCS: 71045; 80048; 81001; 84484; 85025; 85379; 87428; 93005; 99285; A4216